=== PATIENT | female | born 1995 | race African-American/Black ===

== ENCOUNTER 2017-07-12 09:22 | Inpatient (IN) | payer MEDICAID, OTHER ==
[~2017-07-12] VITALS: Ht 149.9 cm; Wt 52.6 kg
[2017-07-12] VITALS (10 sets, daily range): BP systolic 95–119; BP diastolic 50–63
[2017-07-12] MEDS ORDERED: SODIUM CHLORIDE 0.9% 1,000 ML IV ONE (10:11)
[2017-07-12 11:11] LABS: LYMPHOCYTES % 12.6 % (20.0-50.0); MEAN CORPUSCULAR HEMOGLOBIN 27.7 pg (28.0-32.0); MEAN CORPUSCULAR VOLUME 84.6 fL (81.0-99.0); MEAN PLATELET VOLUME 9.6 fl (7.4-10.4); MONOCYTES % 4.5 % (2.0-8.0); NEUTROPHILS % 82.9 % (40.0-76.0); PLATELET 175 x1000/uL (130-400); RED BLOOD CELL COUNT 2.11 mill/uL (4.2-5.4); RED CELL DISTRIBUTION WIDTH 16.7 % (11.6-14.6)
[2017-07-12 11:13] LABS: HEMOGLOBIN. 5.8 g/dL (12.0-16.0)
[2017-07-12 11:14] LABS: HEMATOCRIT. 17.8 % (36.0-48.0)
[2017-07-12 11:17] LABS: CHLORIDE 109 mEq/L (98-107)
[2017-07-12 11:18] LABS: INR 1.1; PROTHROMBIN TIME 11.6 sec (9.4-11.6)
[2017-07-12 11:25] LABS: CARBON DIOXIDE 22 mEq/L (21-32)
[2017-07-12 11:40] LABS: B-HCG QUANTITATIVE 15446 mIU/mL (<3)
[2017-07-12] MEDS ORDERED: MORPHINE SULFATE 4 MG/ML CPJ (NOT FOR IM USE) IV ONE (12:30)
[2017-07-12] MEDS ORDERED: ONDANSETRON HCL 4MG/2ML VIAL IV ONE (12:30)
[2017-07-12] MEDS ORDERED: CLONIDINE 0.1MG TABLET PO PRN (15:45)
[2017-07-12] MEDS ORDERED: IBUP-2028 PO (16:30)
[2017-07-12] MEDS ORDERED: METO-293 PO (16:32)
[2017-07-12] MEDS: ACETAMINOPHEN 325MG TABLET PO PRN (16:59)
[2017-07-12] MEDS ORDERED: METOCLOPRAMIDE HCL 10MG TABLET PO PRN (17:30)
[2017-07-12] MEDS: HYDROCODONE/ACETAMINOPHEN 5/325MG TABLET PO PRN (21:00)
[2017-07-12 21:13] LABS: GLUCOSE URINE NEGATIVE (NEGATIVE); KETONES URINE 1+ (NEGATIVE); LEUKOCYTE ESTERASE URINE 2+ (NEGATIVE); NITRITE URINE NEGATIVE (NEGATIVE); OCCULT BLOOD URINE 3+ (NEGATIVE); PROTEIN URINE 2+ (NEGATIVE); SPECIFIC GRAVITY URINE 1.021 (1.005-1.030)
[2017-07-12 21:32] LABS: *AMPHETAMINES SCREEN URINE NEGATIVE (NEGATIVE); *BARBITURATES SCREEN URINE NEGATIVE (NEGATIVE); *BENZODIAZEPINES SCREEN URINE NEGATIVE (NEGATIVE); *COCAINE SCREEN URINE NEGATIVE (NEGATIVE); CANNABINOID URINE SCREEN NEGATIVE (NEGATIVE); METHADONE URINE SCREEN NEGATIVE (NEGATIVE); PHENCYCLIDINE URINE SCREEN NEGATIVE (NEGATIVE)
[2017-07-12 21:54] LABS: COLOR URINE RED (YELLOW)
[2017-07-12 21:55] LABS: CLARITY URINE HAZY (CLEAR)
[2017-07-12 22:02] LABS: OPIATES URINE SCREEN PRESUMTIVE POSITIVE (NEGATIVE)
[2017-07-12 23:25] LABS: HEMOGLOBIN 7.2 g/dL (12.0-16.0)
[2017-07-12 23:29] LABS: HEMATOCRIT 20.6 % (36.0-48.0)
[2017-07-13] VITALS (11 sets, daily range): BP systolic 93–115; BP diastolic 42–70
[2017-07-13] MEDS ORDERED: SODIUM CHLORIDE 0.9% 1,000 ML IV ONE (03:00)
[2017-07-13] MEDS ORDERED: SODIUM CHLORIDE 0.9% 1,000 ML IV NR (04:00)
[2017-07-13 06:23] LABS: BASOPHILS % 0.1 % (0.0-2.0); EOSINOPHILS % 0.1 % (0.0-5.0); LYMPHOCYTES % 22.3 % (20.0-50.0); MEAN CORPUSCULAR HEMOGLOBIN 28.3 pg (28.0-32.0); MEAN CORPUSCULAR VOLUME 82.4 fL (81.0-99.0); MEAN PLATELET VOLUME 9.7 fl (7.4-10.4); MONOCYTES % 8.1 % (2.0-8.0); NEUTROPHILS % 69.4 % (40.0-76.0); PLATELET 86 x1000/uL (130-400); RED BLOOD CELL COUNT 1.95 mill/uL (4.2-5.4); RED CELL DISTRIBUTION WIDTH 17.6 % (11.6-14.6)
[2017-07-13 06:52] LABS: HEMATOCRIT. 16.1 % (36.0-48.0); HEMOGLOBIN. 5.5 g/dL (12.0-16.0)
[2017-07-13 06:58] LABS: CHLORIDE 111 mEq/L (98-107)
[2017-07-13 07:09] LABS: CARBON DIOXIDE 23 mEq/L (21-32)
[2017-07-13] MEDS: SODIUM CHLORIDE 0.9% 1,000 ML IV SCH (09:20)
[2017-07-13] MEDS: LEVOFLOXACIN 500MG PREMIX 100 ML IV SCH (09:21)
[2017-07-13 11:04] LABS: HEMOGLOBIN 7.2 g/dL (12.0-16.0)
[2017-07-13 11:06] LABS: HEMATOCRIT 21.4 % (36.0-48.0)
[2017-07-13] MEDS ORDERED: MISOPROSTOL 200MCG TABLET RC NR (12:30)
[2017-07-13] MEDS: METHYLERGONOVINE MALEATE 0.2 MG/ML IM NR ×2 (14:14→14:15)
[2017-07-13] MEDS: HYDROMORPHONE HCL/PF 2MG/ML CPJ IV PRN (14:41)
[2017-07-13] MEDS: ONDANSETRON HCL 4MG/2ML VIAL IV PRN (15:02)
[2017-07-13 16:08] LABS: INR 1.1; PROTHROMBIN TIME 11.7 sec (9.4-11.6)
[2017-07-13] MEDS: METHYLERGONOVINE MALEATE 0.2MG TABLET PO SCH (17:06)
[2017-07-13] MEDS: ACETAMINOPHEN 325MG TABLET PO PRN (21:40)
[2017-07-14] VITALS (9 sets, daily range): BP systolic 95–111; BP diastolic 46–63
[2017-07-14] MEDS: METHYLERGONOVINE MALEATE 0.2MG TABLET PO SCH ×3 (01:14→08:43)
[2017-07-14] MEDS: LEVOFLOXACIN 500MG PREMIX 100 ML IV SCH (08:44)
[2017-07-14] MEDS: SODIUM CHLORIDE 0.9% 1,000 ML IV SCH (08:45)
[2017-07-14] MEDS: HYDROCODONE/ACETAMINOPHEN 5/325MG TABLET PO PRN (08:45)
[2017-07-14 10:21] LABS: BASOPHILS % 0.2 % (0.0-2.0); EOSINOPHILS % 0.5 % (0.0-5.0); MEAN CORPUSCULAR HEMOGLOBIN 28.8 pg (28.0-32.0); MEAN CORPUSCULAR VOLUME 81.5 fL (81.0-99.0); MEAN PLATELET VOLUME 9.3 fl (7.4-10.4); NEUTROPHILS % 75.3 % (40.0-76.0); PLATELET 81 x1000/uL (130-400); RED BLOOD CELL COUNT 1.96 mill/uL (4.2-5.4); RED CELL DISTRIBUTION WIDTH 15.4 % (11.6-14.6)
[2017-07-14 10:24] LABS: HEMATOCRIT. 15.9 % (36.0-48.0); HEMOGLOBIN. 5.6 g/dL (12.0-16.0)
[2017-07-14 10:47] LABS: CARBON DIOXIDE 24 mEq/L (21-32); CHLORIDE 107 mEq/L (98-107)
[2017-07-14] MEDS ORDERED: POTASSIUM CHLORIDE 20MEQ TABLET SR PO SCH (12:10)
[2017-07-14] MEDS: HYDROMORPHONE HCL/PF 2MG/ML CPJ IV PRN (12:32)
[2017-07-14] MEDS: ONDANSETRON HCL 4MG/2ML VIAL IV PRN (12:41)
[2017-07-14] MEDS ORDERED: MAGNESIUM 2 G PREMIX 50 ML IV SCH (13:30)
[2017-07-14] MEDS ORDERED: KCL 20MEQ/100ML PREMIX 100 ML IV SCH (13:30)
[2017-07-14 20:54] LABS: HEMATOCRIT 27.8 % (36.0-48.0); HEMOGLOBIN 9.5 g/dL (12.0-16.0)
[2017-07-15] VITALS (11 sets, daily range): BP systolic 90–110; BP diastolic 43–60
[2017-07-15] MEDS: SODIUM CHLORIDE 0.9% 1,000 ML IV SCH (00:14)
[2017-07-15 07:45] LABS: BASOPHILS % 0.2 % (0.0-2.0); EOSINOPHILS % 0.7 % (0.0-5.0); HEMOGLOBIN. 7.1 g/dL (12.0-16.0); LYMPHOCYTES % 29.5 % (20.0-50.0); MEAN CORPUSCULAR VOLUME 83.7 fL (81.0-99.0); MEAN PLATELET VOLUME 9.4 fl (7.4-10.4); MONOCYTES % 7.7 % (2.0-8.0); NEUTROPHILS % 61.9 % (40.0-76.0); PLATELET 103 x1000/uL (130-400); RED BLOOD CELL COUNT 2.47 mill/uL (4.2-5.4); RED CELL DISTRIBUTION WIDTH 15.1 % (11.6-14.6)
[2017-07-15 08:11] LABS: CARBON DIOXIDE 24 mEq/L (21-32); CHLORIDE 109 mEq/L (98-107)
[2017-07-15] MEDS: ACETAMINOPHEN 325MG TABLET PO PRN (08:11)
[2017-07-15] MEDS: LEVOFLOXACIN 500MG PREMIX 100 ML IV SCH (08:22)
[2017-07-15] MEDS ORDERED: POTASSIUM CHLORIDE 20MEQ TABLET SR PO SCH (08:45)
[2017-07-15 09:05] LABS: HEMATOCRIT. 20.6 % (36.0-48.0)
[2017-07-15 20:18] LABS: HEMATOCRIT 28.2 % (36.0-48.0); HEMOGLOBIN 9.8 g/dL (12.0-16.0)
[2017-07-15] MEDS: HYDROCODONE/ACETAMINOPHEN 5/325MG TABLET PO PRN (20:40)
[2017-07-16] VITALS (7 sets, daily range): BP systolic 82–107; BP diastolic 50–68
[2017-07-16] MEDS: SODIUM CHLORIDE 0.9% 1,000 ML IV SCH (02:20)
[2017-07-16] MEDS: HYDROCODONE/ACETAMINOPHEN 5/325MG TABLET PO PRN (04:35)
[2017-07-16 08:07] LABS: BASOPHILS % 0.4 % (0.0-2.0); EOSINOPHILS % 3.1 % (0.0-5.0); HEMATOCRIT. 25.6 % (36.0-48.0); LYMPHOCYTES % 36.2 % (20.0-50.0); MEAN CORPUSCULAR HEMOGLOBIN 29.8 pg (28.0-32.0); MEAN CORPUSCULAR VOLUME 84.5 fL (81.0-99.0); MEAN PLATELET VOLUME 9.2 fl (7.4-10.4); MONOCYTES % 8.8 % (2.0-8.0); NEUTROPHILS % 51.5 % (40.0-76.0); PLATELET 135 x1000/uL (130-400); RED BLOOD CELL COUNT 3.03 mill/uL (4.2-5.4); RED CELL DISTRIBUTION WIDTH 14.3 % (11.6-14.6)
[2017-07-16] MEDS ORDERED: LEVOFLOXACIN 500MG TABLET PO SCH (09:00)
[2017-07-16 09:08] LABS: CARBON DIOXIDE 24 mEq/L (21-32); CHLORIDE 108 mEq/L (98-107)
== END 2017-07-16 17:20 | disposition home or self-care (01) | DRG 561 ==
LOC: ER 09:38 → 5WST 13:18 → ENRESERV 13:42
PROVIDERS: ADMIT Internal Medicine Nephrology; ATTEND Internal Medicine Nephrology
PROC: 30233N1 Transfusion of Nonautologous Red Blood Cells into Peripheral Vein, Percutaneous Approach (ICD-10-PCS; principal; 2017-07-12)
DX: O85 Puerperal sepsis (principal); D69.6 Thrombocytopenia, unspecified; E44.0 Moderate protein-calorie malnutrition; D62 Acute posthemorrhagic anemia; O72.1 Other immediate postpartum hemorrhage; O99.111 Other diseases of the blood and blood-forming organs and certain disorders involving the immune mechanism complicating pregnancy, first trimester; N93.8 Other specified abnormal uterine and vaginal bleeding; D72.829 Elevated white blood cell count, unspecified; D64.9 Anemia, unspecified; O99.011 Anemia complicating pregnancy, first trimester; N92.0 Excessive and frequent menstruation with regular cycle; Z88.0 Allergy status to penicillin; Z3A.01 Less than 8 weeks gestation of pregnancy; Z68.23 Body mass index [BMI] 23.0-23.9, adult; O90.81 Anemia of the puerperium
CPT/HCPCS: 36415; 76830; 76856; 80048; 80053; 80305; 81001; 83735; 84702; 85014; 85018; 85025; 85610; 85730; 86850; 86900; 86920; 88304; 96361; 96374; 96375; 99285; C1893; J1170; J1956; J2210; J2270; J2405; J3475; J3480; J7030; J7040; J7050; P9016; A4315